=== PATIENT | male | born 1945 | race Caucasian/White ===

== ENCOUNTER → 2018-01-07 | Outpatient (CLI) | payer MEDICARE, OTHER ==
[2018-01-07 09:09] LABS: INTERNATIONAL RATION (INR) 1.78
[2018-01-07 09:13] LABS: PROTHROMBIN TIME 21.6 SEC (11.4-15.4)
== END ==
LOC: OD 08:00
PROVIDERS: ATTEND Internal Medicine Cardiovascular Disease
DX: I48.0 Paroxysmal atrial fibrillation (principal); Z79.01 Long term (current) use of anticoagulants
CPT/HCPCS: 36415; 85610

== ENCOUNTER → 2018-01-14 | Outpatient (CLI) | payer MEDICARE, OTHER ==
[2018-01-14 10:56] LABS: INTERNATIONAL RATION (INR) 2.51; PROTHROMBIN TIME 28.3 SEC (11.4-15.4)
== END ==
LOC: OD 08:51
PROVIDERS: ATTEND Internal Medicine Cardiovascular Disease
DX: I48.0 Paroxysmal atrial fibrillation (principal); Z79.01 Long term (current) use of anticoagulants
CPT/HCPCS: 36415; 85610

== ENCOUNTER → 2018-01-28 | Outpatient (CLI) | payer MEDICARE, OTHER ==
[2018-01-28 10:54] LABS: PROTHROMBIN TIME 28.2 SEC (11.4-15.4)
== END ==
LOC: OD 09:37
PROVIDERS: ATTEND Internal Medicine Cardiovascular Disease
DX: I48.0 Paroxysmal atrial fibrillation (principal); Z79.01 Long term (current) use of anticoagulants
CPT/HCPCS: 36415; 85610

== ENCOUNTER → 2018-02-18 | Outpatient (CLI) | payer MEDICARE ==
[2018-02-18 08:30] LABS: INTERNATIONAL RATION (INR) 2.23; PROTHROMBIN TIME 25.8 SEC (11.4-15.4)
== END ==
LOC: OD 07:25
PROVIDERS: ATTEND Internal Medicine Cardiovascular Disease
DX: I48.0 Paroxysmal atrial fibrillation (principal); Z79.01 Long term (current) use of anticoagulants
CPT/HCPCS: 36415; 85610

== ENCOUNTER → 2018-03-18 | Outpatient (CLI) | payer MEDICARE, OTHER ==
[2018-03-18 08:39] LABS: INTERNATIONAL RATION (INR) 2.37
== END ==
LOC: OD 07:49
PROVIDERS: ATTEND Internal Medicine Cardiovascular Disease
DX: I48.0 Paroxysmal atrial fibrillation (principal); Z79.01 Long term (current) use of anticoagulants
CPT/HCPCS: 36415; 85610

== ENCOUNTER → 2018-04-15 | Outpatient (CLI) | payer MEDICARE, OTHER ==
[2018-04-15 09:27] LABS: INTERNATIONAL RATION (INR) 2.69; PROTHROMBIN TIME 29.9 SEC (11.4-15.4)
== END ==
LOC: OD 08:51
PROVIDERS: ATTEND Internal Medicine Cardiovascular Disease
DX: I48.0 Paroxysmal atrial fibrillation (principal); Z79.01 Long term (current) use of anticoagulants
CPT/HCPCS: 36415; 85610

== ENCOUNTER 2019-03-16 21:33 | Emergency (ER) | payer MEDICARE, OTHER ==
--- NOTE | 2019-03-16 22:29 | ER Document Report ---
ED Medical Screen (RME) - General Chief Complaint: Chest Pain Stated Complaint: CHEST PAINS Time Seen by Provider: 03/16/19 22:26 Primary Care Provider: QUENTIN SALMON DO [Primary Care Provider] - Follow up as needed Notes: Patient is a 74-year-old male presents emergency department with a chief complaint of chest pain and shortness of breath. His symptoms started at 1930 this evening. He thought it may have been indigestion, then he took Rolaids. He says that it did not ease up, prompting him to come to the emergency department. He does have a history of atrial fibrillation, single bypass of the right coronary artery in 2000, hypertension, diabetes, hyperlipidemia, left kidney cancer with nephrectomy. Patient did have a stress test in October. His pharmacy data analyst is Dr. Martinez at [facility]. Exam: Heart tones irregularly irregular. I have greeted and performed a rapid initial assessment of this patient. A comprehensive ED assessment and evaluation of the patient, analysis of test results and completion of medical decision making process will be conducted by an additional ED providers. TRAVEL OUTSIDE OF THE [place] IN LAST 30 DAYS: No Physical Exam - Vital signs Vitals: Temp Pulse Resp BP Pulse Ox 98.0 F 56 L 22 H 131/97 H 95 03/16/19 22:16 03/16/19 22:16 03/16/19 22:16 03/16/19 22:16 03/16/19 22:16 Course - Vital Signs Vital signs: Temp Pulse Resp BP Pulse Ox 98.0 F 56 L 22 H 131/97 H 95 03/16/19 22:16 03/16/19 22:16 03/16/19 22:16 03/16/19 22:16 03/16/19 22:16 Doctor's Discharge - Discharge Referrals: QUENTIN SALMON DO [Primary Care Provider] - Follow up as needed
--- NOTE | 2019-03-16 23:21 | RADIOLOGY REPORT (SQ) ---
EXAM DESCRIPTION: XR CHEST 1 VIEW COMPLETED DATE/TME: 03/16/2019 22:31 CLINICAL HISTORY: 74 years Male chest pain/shortness of breath COMPARISON: None. FINDINGS: The cardiomediastinal silhouette appears unremarkable. No consolidating infiltrates or pleural effusions. No pneumothorax. Linear atelectasis in the left lung base. Median sternotomy wires are present. IMPRESSION: No acute abnormality is identified.
[2019-03-16 23:34] LABS: ABSOLUTE BASOPHILS # (AUTO) 0.1 10^3/uL (0.0-0.2); ABSOLUTE EOSINOPHILS # (AUTO) 0.3 10^3/uL (0.0-0.6); ABSOLUTE LYMPHOCYTES (AUTO) 2.4 10^3/uL (0.5-4.7); ABSOLUTE MONOCYTES (AUTO) 0.7 10^3/uL (0.1-1.4); ABSOLUTE NEUT (AUTO) 5.4 10^3/uL (1.7-8.2); BASOPHILS % (AUTO) 0.9 % (0-2); EOSINOPHILS % (AUTO) 3.2 % (0-6); HEMATOCRIT 47.5 % (37.9-51.0); LYMPHOCYTES % (AUTO) 26.9 % (13-45); MEAN CORPUSCULAR HEMOGLOBIN 30.4 pg (27.0-33.4); MEAN CORPUSCULAR HGB CONC 33.7 g/dL (32.0-36.0); MEAN CORPUSCULAR VOLUME 90 fl (80-97); MONOCYTES % (AUTO) 7.9 % (3-13); PLATELET COUNT 221 10^3/uL (150-450); RED BLOOD COUNT 5.27 10^6/uL (4.35-5.55); RED CELL DISTRIBUTION WIDTH 14.4 % (11.5-14.0); SEGMENTED NEUTROPHILS % (AUTO) 61.1 % (42-78); TOTAL CELLS COUNTED % (AUTO) 100 %; WHITE BLOOD COUNT 8.9 10^3/uL (4.0-10.5)
[2019-03-16 23:48] LABS: ALANINE AMINOTRANSFERASE 25 U/L (21-72); ALKALINE PHOSPHATASE 69 U/L (38-126); ANION GAP 7 (5-19); ASPARTATE AMINO TRANSFERASE 25 U/L (17-59); BILIRUBIN,DIRECT 0.3 mg/dL (0.0-0.4); BILIRUBIN,TOTAL 0.6 mg/dL (0.2-1.3); BLOOD UREA NITROGEN 24 mg/dL (7-20); CALCIUM 10.2 mg/dL (8.4-10.2); CARBON DIOXIDE 31 mmol/L (22-30); CHLORIDE 101 mmol/L (98-107); CREATINE KINASE 66 U/L (55-170); GLUCOSE 105 mg/dL (75-110); POTASSIUM 4.9 mmol/L (3.6-5.0); SODIUM 139.2 mmol/L (137-145); TOTAL PROTEIN 7.1 g/dL (6.3-8.2)
[2019-03-17] LABS: CREATINE KINASE MB 0.57 ng/mL (<4.55)
[2019-03-17 00:02] LABS: TROPONIN I < 0.012 ng/mL
--- NOTE | 2019-03-17 02:47 | ER Document Report ---
ED General - General Chief Complaint: Chest Pain Stated Complaint: CHEST PAINS Time Seen by Provider: 03/16/19 22:26 Primary Care Provider: QUENTIN SALMON DO [NO LOCAL MD] - Follow up as needed Mode of Arrival: Ambulatory Information source: Patient Notes: 74-year-old male with atrial fibrillation, coronary artery disease, bigeminy, previous [place] history of bypass in 2000, stent placement of the right RCA in 2013, diabetes presents with complaint of chest pain that started 7 hours prior to my exam. Patient states that he was at rest when he had an episode of left-sided chest pressure that lasted approximately 2 hours and resolved upon arriving to the emergency department. Patient does report prior similar symptoms with anxiety which he suffers from frequently. Patient does admit to shortness of breath but states this is chronic to hit to his atrial fibrillation and is no worse. Patient does report that he moved a heavy plant approximately 40 pounds which caused him immediate pain. Patient states his chest pain is reproducible with palpation to the left chest. Patient does see Dr. Martinez client services associate at [facility]. He does currently take metoprolol, Coumadin, glyburide and has not missed any doses. Patient did take baby aspirin this morning. TRAVEL OUTSIDE OF THE [place] IN LAST 30 DAYS: No - HPI Onset: This evening Onset/Duration: Sudden, Gone Quality of pain: Pressure Severity: Mild Associated symptoms: Chest pain - Resolved, Shortness of breath - Chronic. denies: Nonproductive cough, Productive cough, Fever, Hoarseness, Hurts to breath, Nausea, Vomiting, Sweating Exacerbated by: Other - Palpation Relieved by: Remaining still Similar symptoms previously: Yes Recently seen / treated by doctor: Yes Past Medical History - General Information source: Patient - Social History Smoking Status: Never Smoker Frequency of alcohol use: None Drug Abuse: None Lives with: Spouse/Significant other Family History: Reviewed & Not Pertinent Patient has suicidal ideation: No Patient has homicidal ideation: No - Past Medical History Cardiac Medical History: Reports: Hx Atrial Fibrillation, Hx Coronary Artery Disease, Hx Hypercholesterolemia, Hx Hypertension, Other - Bigeminy Endocrine Medical History: Reports: Hx Diabetes Mellitus Type 2 Renal/ Medical History: Denies: Hx Peritoneal Dialysis Review of Systems - Review of Systems Notes: REVIEW OF SYSTEMS: CONSTITUTIONAL : Denies fever, chills, or sweats. Denies recent illness. Denies weight loss, recent hospitalizations. EENT: Denies visual changes, eye pain. Denies sore throat, oral lesions, difficulty swallowing. CARDIOVASCULAR: + chest pain. Denies palpitations. Denies lower extremity edema. RESPIRATORY: Denies cough. + shortness of breath, denies wheezing. GASTROINTESTINAL: Denies abdominal pain or distention. Denies nausea, vomiting, or diarrhea. Denies blood in vomitus, stools, or per rectum. Denies black, tarry stools. Denies constipation. GENITOURINARY: Denies difficulty urinating, painful urination, frequency, blood in urine, testicular pain or penile discharge. MUSCULOSKELETAL: Denies back or neck pain or stiffness. Denies joint pain or swelling. SKIN: Denies rash, lesions or sores. HEMATOLOGIC : Denies easy bruising or bleeding. LYMPHATIC: Denies swollen glands. NEUROLOGICAL: Denies confusion or altered mental status. Denies loss of consciousness. Denies dizziness or lightheadedness. Denies headache. Denies weakness or paralysis. Denies problems difficulty with ambulation, slurred speech. Denies sensory loss, numbness, or tingling. Denies seizures. PSYCHIATRIC: Denies anxiety or stress. Denies depression, suicidal ideation, or Physical Exam - Vital signs Vitals: Temp Pulse Resp BP Pulse Ox 98.0 F 56 L 22 H 131/97 H 95 03/16/19 22:16 03/16/19 22:16 03/16/19 22:16 03/16/19 22:16 03/16/19 22:16 - Notes Notes: PHYSICAL EXAMINATION: GENERAL: Well-appearing, well-nourished and in no acute distress. HEAD: Atraumatic, normocephalic. EYES: Pupils equal round and reactive to light, extraocular movements intact, sclera anicteric, conjunctiva are normal. ENT: Nares patent, oropharynx clear without exudates. Moist mucous membranes. NECK: Normal range of motion, supple without lymphadenopathy LUNGS: Breath sounds clear to auscultation bilaterally and equal. No wheezes rales or rhonchi. Reproducible chest tenderness with palpation to the left chest wall. No associated ecchymosis or bruising. HEART: Regular rate and rhythm without murmurs ABDOMEN: Soft, nontender, nondistended abdomen. No guarding, no rebound. No masses appreciated. Musculoskeletal: Normal range of motion, no pitting or edema. No cyanosis. NEUROLOGICAL: Cranial nerves grossly intact. Normal speech, normal gait. Normal sensory, motor exams PSYCH: Normal mood, normal affect. SKIN: Warm, Dry, normal turgor, no rashes or lesions noted. Course - Re-evaluation Re-evalutation: 03/17/19 23:14 Laboratory 03/16/19 03/16/19 03/16/19 23:07 23:07 23:07 WBC 8.9 RBC 5.27 Hgb 16.0 Hct 47.5 MCV 90 MCH 30.4 MCHC 33.7 RDW 14.4 H Plt Count 221 Seg Neutrophils % 61.1 Lymphocytes % 26.9 Monocytes % 7.9 Eosinophils % 3.2 Basophils % 0.9 Absolute Neutrophils 5.4 Absolute Lymphocytes 2.4 Absolute Monocytes 0.7 Absolute Eosinophils 0.3 Absolute Basophils 0.1 Sodium 139.2 Potassium 4.9 Chloride 101 Carbon Dioxide 31 H Anion Gap 7 BUN 24 H Creatinine 1.21 Est GFR ( Amer) > 60 Est GFR (Non-Af Amer) 58 L Glucose 105 Calcium 10.2 Total Bilirubin 0.6 Direct Bilirubin 0.3 Neonat Total Bilirubin Not Reportable Neonat Direct Bilirubin Not Reportable Neonat Indirect Bili Not Reportable AST 25 ALT 25 Alkaline Phosphatase 69 Creatine Kinase 66 CK-MB (CK-2) 0.57 Troponin I < 0.012 Total Protein 7.1 Albumin 4.0 03/17/19 02:42 WBC RBC Hgb Hct MCV MCH MCHC RDW Plt Count Seg Neutrophils % Lymphocytes % Monocytes % Eosinophils % Basophils % Absolute Neutrophils Absolute Lymphocytes Absolute Monocytes Absolute Eosinophils Absolute Basophils Sodium Potassium Chloride Carbon Dioxide Anion Gap BUN Creatinine Est GFR ( Amer) Est GFR (Non-Af Amer) Glucose Calcium Total Bilirubin Direct Bilirubin Neonat Total Bilirubin Neonat Direct Bilirubin Neonat Indirect Bili AST ALT Alkaline Phosphatase Creatine Kinase CK-MB (CK-2) Troponin I < 0.012 Total Protein Albumin Chest X-Ray 03/16/19 22:31 IMPRESSION: No acute abnormality is identified. Temp Pulse Resp BP Pulse Ox 98.5 F 56 L 20 150/76 H 97 03/17/19 03:38 03/16/19 22:16 03/17/19 03:02 03/17/19 03:02 03/17/19 03:02 74-year-old male with chronic chest pain, chronic shortness of breath presents with complaint of 2 hours of chest pressure that occurred while at rest. Patient currently asymptomatic. Reports having moved a heavy flower pot earlier and believes this is the reason for his soreness. He states he often gets anx ious when he feels his chest pain and thinks this exacerbated his shortness of breath that he reports is chronic. Chest x-ray showed no acute abnormality. EKG does show evidence of previous infarct which patient is aware of and bigeminy which patient reports is known. Patient did take aspirin this morning. Cardiac enzymes including delta troponin are within normal limits. Patient requesting discharge home. States that he can easily follow-up with his client services associate Dr. Martinez in the next 3 days. Patient was evaluated and treated as appropriate for the patient's presenting symptoms and complaint, with consideration of any critical or life threatening conditions that may be associated with their obtained history and exam as noted above. All results were discussed with patient . Patient provided the opportunity to ask questions, and express concerns. Patient was educated on treatments based on their presumed diagnosis as noted above. At this time we will discharge the patient with return precautions and follow-up recommendations. Verbal discharge instructions given a the bedside. Medication warnings reviewed. Patient is in agreement with this plan and has verbalized understanding of return precautions. After careful consideration I feel that that patient can be safely discharged from the emergency department, they were advised to followup with a primary care physician in 2-3 days. Dictation on this chart was performed using voice recognition software and may result in unintended grammatical, spelling, syntax or errors. - Vital Signs Vital signs: Temp Pulse Resp BP Pulse Ox 98.5 F 56 L 20 150/76 H 97 03/17/19 03:38 03/16/19 22:16 03/17/19 03:02 03/17/19 03:02 03/17/19 03:02 - Laboratory Result Diagrams: 03/16/19 23:07 03/16/19 23:07 Laboratory results interpreted by me: 03/16/19 03/16/19 23:07 23:07 RDW 14.4 H Carbon Dioxide 31 H BUN 24 H Est GFR (Non-Af Amer) 58 L - Diagnostic Test Radiology reviewed: Image reviewed, Reports reviewed - EKG Interpretation by Me EKG shows normal: Sinus rhythm Rate: Normal When compared to previous EKG there are: Previous EKG unavailable Discharge - Discharge Clinical Impression: Chest wall pain, History of coronary artery disease, History of atrial fibrill ation, History of anxiety Condition: Good Disposition: HOME, SELF-CARE Instructions: Chest Wall Pain ([facility]), Chest Pain of Unclear Cause ([facility]) Additional Instructions: You were seen today for chest pain. The exact cause of your pain is unclear. However, based on your cardiac enzyme testing, chest x-ray, and EKG it does not appear that it is from an immediately life-threatening cause at this time. Although your testing here is normal is critical that you follow-up with your primary care physician for continued evaluation of this chest pain and possible stress testing. I recommended you see your physician within the next 24-48 hours to be evaluated for consideration of a stress test. Please return to emergency department immediately if you have worsening of your chest pain, shortness of breath, vomiting, become unable to exert yourself due to pain or difficulty breathing, you pass out, or have any pain that radiates into your arms, jaw, or back. Please also return if you have any additional symptoms that are concerning to you. Referrals: QUENTIN SALMON, [NO LOCAL MD] - Follow up as needed
[2019-03-17 03:35] VITALS: BP 150/76
--- NOTE | 2019-03-17 07:32 | EKG REPORT ---
SEVERITY:- ABNORMAL ECG - SINUS RHYTHM VENTRICULAR BIGEMINY PROBABLE INFERIOR INFARCT, AGE INDETERMINATE CONSIDER ANTERIOR INFARCT : Confirmed by: Ant Coleman MD 17-Mar-2019 07:31:47
== END 2019-03-17 03:38 | disposition home or self-care (01) ==
LOC: ER 21:33
DX: R07.89 Other chest pain (principal); R06.02 Shortness of breath; I48.91 Unspecified atrial fibrillation; I25.10 Atherosclerotic heart disease of native coronary artery without angina pectoris; I25.2 Old myocardial infarction; Z79.899 Other long term (current) drug therapy; Z79.01 Long term (current) use of anticoagulants
CPT/HCPCS: 36415; 71045; 80053; 82550; 82553; 84484; 85025; 93005; 93010; 99285